=== PATIENT | male | born 1975 | race Two or more races ===

== ENCOUNTER 2017-11-22 23:34 | Emergency (ER) | payer SELFPAY ==
[2017-11-23] MEDS ORDERED: Diazepam 5 MG Tab PO ONE (00:07)
[2017-11-23] MEDS ORDERED: hydrOXYzine HCl 100 MG/2 ML SDV IM ONE (00:07)
--- NOTE | 2017-11-23 00:13 | EDM.PDOC ---
ED HPI GENERAL MEDICAL PROBLEM - General Chief Complaint: General Stated Complaint: DIZZY Time Seen by Provider: 11/23/17 00:00 Source of Information: Reports: Patient, RN History Limitations: Reports: Other (No records at this hospital) - History of Present Illness INITIAL COMMENTS - FREE TEXT/NARRATIVE: 42 yo male presents with vertigo and nausea without vomiting that began tonight on his way home from the [facility]. He has Dramamine that he takes when he gets this problem, but the med did not help so he stopped her on his way home to [place]. This apparently has been a chronic, recurring condition for him. He has had head CT scans and blood work and all of it was normal. Injured L ear as a child requiring surgery. Onset: Unknown/Unsure (Has had for years) Onset Date: 11/23/17 Onset Time: 23:20 Duration: Minutes:, Constant Location: Reports: Head (worse with turning his head.) Quality: Reports: Other (no pain) Severity: Moderate Improves with: Reports: Rest Worsens with: Reports: Movement (stevie of his head.) Context: Reports: Other (chronic, recurrent condition. ) Associated Symptoms: Reports: Nausea/Vomiting (no vomiting.) Treatments FIRER KILN: Reports: Other (see below) (Dramamine) - Related Data Allergies Allergy/AdvReac Type Severity Reaction Status Date / Time No Known Allergies Allergy Verified 11/22/17 23:50 Home Meds: Home Meds Dimenhydrinate [Dramamine] 50 mg PO Q4H PRN 11/22/17 [History] Past Medical History Musculoskeletal History: Reports: Fracture Neurological History: Reports: Vertigo Social & Family History - Tobacco Use Smoking Status *Q: Current Every Day Smoker Years of Tobacco use: 26 Packs/Tins Daily: 0.2 - Caffeine Use Caffeine Use: Reports: Soda - Recreational Drug Use Recreational Drug Use: No ED ROS GENERAL - Review of Systems Review Of Systems: See Below Constitutional: Reports: No Symptoms HEENT: Reports: No Symptoms Respiratory: Reports: No Symptoms Cardiovascular: Reports: No Symptoms GI/Abdominal: Reports: Decreased Appetite, Nausea. Denies: Abdominal Pain, Anorexia, Black Stool, Bloody Stool, Constipation, Diarrhea, Distension, Flatus , Hematemesis, Hematochezia, Vomiting : Reports: No Symptoms Musculoskeletal: Reports: No Symptoms Skin: Reports: No Symptoms Neurological: Reports: Dizziness (vertigo), Difficulty Walking, Gait Disturbance Psychiatric: Reports: No Symptoms ED EXAM, GENERAL - Physical Exam Exam: See Below Exam Limited By: No Limitations General Appearance: Alert, WD/WN, No Apparent Distress Eye Exam: Bilateral Eye: EOMI, Nystagmus (on left almazan gaze.), PERRL Ears: Normal External Exam, Normal Canal, Hearing Grossly Normal, Normal TMs Ear Exam: Bilateral Ear: Auricle Normal, Canal Normal, TM normal Nose: Normal Inspection, Normal Mucosa, No Blood Throat/Mouth: Normal Inspection, Normal Lips, Normal Oropharynx, Normal Voice, No Airway Compromise Head: Atraumatic, Normocephalic Neck: Normal Inspection, Supple, Non-Tender Respiratory/Chest: No Respiratory Distress, Lungs Clear, Normal Breath Sounds, No Accessory Muscle Use Cardiovascular: Regular Rate, Rhythm, No Edema GI/Abdominal: Normal Bowel Sounds, Soft, Non-Tender, No Distention Back Exam: Normal Inspection. No: CVA Tenderness (R), CVA Tenderness (L) Extremities: Normal Inspection, Normal Range of Motion, Non-Tender, No Pedal Edema Neurological: Alert, Oriented, CN II-XII Intact, Normal Cognition, Normal Gait Psychiatric: Normal Affect, Normal Mood Skin Exam: Warm, Dry, Intact, Normal Color, No Rash Lymphatic: No Adenopathy Course - Vital Signs Text/Narrative:: Symptoms reduced with today's treatment. Last Recorded V/S: Last Vital Signs Temp 36.0 C 11/22/17 23:50 Pulse 69 11/22/17 23:50 Resp 15 11/22/17 23:50 BP 142/82 H 11/22/17 23:50 Pulse Ox 99 11/22/17 23:50 Orthostatic Blood Pressure [ 134/81 Standing] Orthostatic Blood Pressure [ 138/87 Sitting] Orthostatic Blood Pressure [ 132/75 Supine] - Orders/Labs/Meds Meds: Medications Discontinued Medications Generic Name Dose Route Start Last Admin Trade Name Nimisha PRN Reason Stop Dose Admin Diazepam 5 mg 11/23/17 00:07 11/23/17 00:13 Valium. PO 11/23/17 00:08 5 mg ONETIME ONE Administration Hydroxyzine HCl 50 mg 11/23/17 00:07 11/23/17 00:13 Vistaril IM 11/23/17 00:08 50 mg ONETIME ONE Administration Departure - Departure Time of Disposition: 00:50 Disposition: Home, Self-Care 01 Condition: Fair Clinical Impression: Vertigo - Discharge Information Referrals: PCP,None [Primary Care Provider] - Forms: ED Department Discharge
== END 2017-11-23 01:01 | disposition home or self-care (01) ==
LOC: JP.ED 23:34
DX: R42 Dizziness and giddiness (principal); F17.210 Nicotine dependence, cigarettes, uncomplicated
CPT/HCPCS: 96372; 99283; 99284; A9270; J3410